=== PATIENT | male | born 1970 | race Caucasian/White ===

== ENCOUNTER 2018-02-02 14:15 | Emergency (ER) | payer SELFPAY, BC, OTHER ==
[2018-02-02] MEDS: LIDOCAINE 1% (MDV) 10 ML INJ INJ (16:09)
[2018-02-02] MEDS: CEPHALEXIN 500 MG CAP PO (16:40)
[2018-02-02] MEDS: TRIMETHOPRIM/SULFAMETHOX (DS) TAB PO (16:40)
== END 2018-02-02 16:52 | disposition home or self-care (01) ==
LOC: FTE 14:15
DX: L02.411 Cutaneous abscess of right axilla (principal)
CPT/HCPCS: 10060; 99284-25

== ENCOUNTER 2018-02-17 18:54 | Emergency (ER) | payer SELFPAY, OTHER ==
[2018-02-17] MEDS ORDERED: IBUPROFEN 600 MG TAB PO (20:00)
[2018-02-17] MEDS: ACETAMINOPHEN 325 MG TAB PO (20:23)
[2018-02-17] MEDS: LIDOCAINE 1% (MDV) 20 ML INJ SC (20:31)
== END 2018-02-17 21:05 | disposition home or self-care (01) ==
LOC: FTE 18:54
DX: L02.411 Cutaneous abscess of right axilla (principal)
CPT/HCPCS: 10061; 99283-25

== ENCOUNTER 2018-04-27 19:37 | Emergency (ER) | payer SELFPAY | END 2018-04-27 20:24 | disposition left against medical advice (07) | LOC: FTE 20:24 | DX: Z53.21 Procedure and treatment not carried out due to patient leaving prior to being seen by health care provider (principal) ==

== ENCOUNTER 2018-04-28 09:53 | Emergency (ER) | payer SELFPAY ==
[2018-04-28] MEDS ORDERED: LIDOCAINE 1% (MDV) 20 ML INJ SC (11:00)
[2018-04-28] MEDS ORDERED: IBUPROFEN 600 MG TAB PO (11:00)
[2018-04-28] MEDS: LIDOCAINE 1% (MPF) 5 ML VIAL INJ (11:00)
[2018-04-28] MEDS: ACETAMINOPHEN 325 MG TAB PO (11:01)
== END 2018-04-28 11:32 | disposition home or self-care (01) ==
LOC: FTE 09:53
DX: L05.01 Pilonidal cyst with abscess (principal); F17.210 Nicotine dependence, cigarettes, uncomplicated; Z98.61 Coronary angioplasty status
CPT/HCPCS: 10080; 99283-25

== ENCOUNTER 2018-05-02 22:30 | Emergency (ER) | payer SELFPAY | END 2018-05-03 01:01 | disposition home or self-care (01) | LOC: FTE 22:30 | DX: S60.521A Blister (nonthermal) of right hand, initial encounter (principal); S60.522A Blister (nonthermal) of left hand, initial encounter; X58.XXXA Exposure to other specified factors, initial encounter; Y92.9 Unspecified place or not applicable; Z98.61 Coronary angioplasty status | CPT/HCPCS: 99283 ==

== ENCOUNTER 2018-07-02 21:11 | Emergency (ER) | payer SELFPAY | END 2018-07-02 23:56 | disposition home or self-care (01) | LOC: FTE 21:11 | DX: J00 Acute nasopharyngitis [common cold] (principal); F17.210 Nicotine dependence, cigarettes, uncomplicated; Z98.61 Coronary angioplasty status | CPT/HCPCS: 99283 ==

== ENCOUNTER 2018-08-06 04:08 | Emergency (ER) | payer SELFPAY | END 2018-08-06 05:10 | disposition left against medical advice (07) | LOC: E/R 04:08 | DX: Z53.21 Procedure and treatment not carried out due to patient leaving prior to being seen by health care provider (principal) ==

== ENCOUNTER 2018-08-09 22:59 | Emergency (ER) | payer SELFPAY ==
[2018-08-10] MEDS: CLOPIDOGREL 75 MG TAB PO (04:43)
== END 2018-08-10 04:55 | disposition home or self-care (01) ==
LOC: FTE 22:59
DX: Z76.0 Encounter for issue of repeat prescription (principal); F17.210 Nicotine dependence, cigarettes, uncomplicated; Z79.01 Long term (current) use of anticoagulants; Z98.61 Coronary angioplasty status
CPT/HCPCS: 99283